=== PATIENT | male | born 1950 | race Hispanic/Latino ===

== ENCOUNTER 2021-10-21 15:53 | Observation (INO) | payer SELFPAY ==
[2021-10-21 16:54] LABS: #Basophils 0.1 10x3/uL (0.0-0.2); #Eosinphils 0.3 10x3/uL (0.0-0.5); #Monocytes 0.6 10x3/uL (0.0-1.1); #Neutrophils 3.9 10x3/uL (1.5-8.4); %Basophils 0.7 % (0.0-2.0); %Eosinophils 3.5 % (0.0-6.0); %Lymphocytes 33.7 % (18.0-47.0); %Monocytes 7.6 % (0.0-10.0); %Neutrophils 54.2 % (40.0-75.0); Hemoglobin 13.2 g/dL (13.5-17.5); Mean Corpuscular HGB CONC 33.7 g/dL (32.0-36.0); Mean Corpuscular Hemoglobin 30.6 pg (27.0-33.0); Mean Platelet Volume 10.3 fl (7.4-10.4); Platelet Count 227 10x3/uL (150-450); Red Blood Cell (RBC) Count 4.31 10x6/uL (4.32-5.72); White Blood Cell (WBC) Count 7.2 10x3/uL (3.5-10.5)
[2021-10-21 17:08] LABS: ALT (SGPT) 24 U/L (8-55); AST (SGOT) 25 U/L (5-34); Albumin 4.1 g/dL (3.4-4.8); Alkaline Phosphatase 57 U/L (40-110); Anion Gap 13 mmol/L (10-20); BUN (Urea Nitrogen) 17 mg/dL (8.4-25.7); Bilirubin, Total 0.2 mg/dL (0.2-1.2); Calc. Creatinine Clearance 0 mL/min (70-130); Calcium 9.2 mg/dL (7.8-10.44); Carbon Dioxide 24 mmol/L (23-31); Chloride 105 mmol/L (98-107); Globulin 3.3 g/dL (2.4-3.5); Glucose 94 mg/dL (80-115); Potassium 4.1 mmol/L (3.5-5.1); Protein, Total 7.4 g/dL (5.8-8.1); Sodium 138 mmol/L (136-145)
[2021-10-21] MEDS ORDERED: Aspirin Chewable 81 MG TAB ONE (17:43)
[2021-10-21] MEDS ORDERED: Zolpidem Tartrate 5 MG TAB PO PRN (20:04)
[2021-10-21] MEDS ORDERED: Acetaminophen 325 MG TAB PO PRN (20:04)
[2021-10-21] MEDS ORDERED: Ondansetron PF 4 MG/2 ML Vial IVP PRN (20:04)
[2021-10-21] MEDS ORDERED: Guaifenesin DM 100-10/5 ML UDCUP PO PRN (20:04)
[2021-10-21] MEDS ORDERED: Senokot S 8.6-50 MG TAB PO PRN (20:04)
[2021-10-21] MEDS ORDERED: Calcium Carbonate 500 MG ChewTAB PO PRN (20:04)
[2021-10-21 22:09] VITALS: BMI 33.4
[2021-10-21] MEDS ORDERED: Sodium Chloride 0.9% 500 ML IV SCH (23:30)
[2021-10-21] MEDS ORDERED: Lisinopril 5 MG TAB PO SCH (23:30)
[2021-10-22 04:34] LABS: Anion Gap 11 mmol/L (10-20); BUN (Urea Nitrogen) 15 mg/dL (8.4-25.7); Calc. Creatinine Clearance 104 mL/min (70-130); Calcium 8.6 mg/dL (7.8-10.44); Carbon Dioxide 25 mmol/L (23-31); Cardiac Risk 4.5 (Less than 4.5); Chloride 108 mmol/L (98-107); Cholesterol 153 mg/dl (< 200 Desired); Glucose 98 mg/dL (80-115); HDL Cholesterol 34 mg/dL (>60 Neg Risk); LDL Cholesterol, Calculated 95 mg/dL; Potassium 4.1 mmol/L (3.5-5.1); Sodium 140 mmol/L (136-145); Triglycerides 118 mg/dL (Less than 150)
[2021-10-22 04:54] LABS: SARS-CoV-2 NAA Rapid Test Not Detected (NotDetected)
[2021-10-22] MEDS ORDERED: Amlodipine 5 MG TAB PO SCH (06:48)
[2021-10-22] MEDS ORDERED: Lisinopril 5 MG TAB PO SCH (09:00)
[2021-10-22] MEDS: Aspirin 81 mg Enteric Coated Tablet PO SCH (10:05)
[2021-10-22] MEDS: Lisinopril 10 MG TAB PO SCH (20:05)
[2021-10-22] MEDS ORDERED: Atorvastatin Calcium 40 MG TAB PO SCH (21:00)
[2021-10-23 05:40] LABS: #Basophils 0.1 10x3/uL (0.0-0.2); #Eosinphils 0.2 10x3/uL (0.0-0.5); #Monocytes 0.4 10x3/uL (0.0-1.1); #Neutrophils 3.7 10x3/uL (1.5-8.4); %Basophils 0.8 % (0.0-2.0); %Eosinophils 3.5 % (0.0-6.0); %Lymphocytes 27.6 % (18.0-47.0); %Monocytes 6.2 % (0.0-10.0); %Neutrophils 61.7 % (40.0-75.0); Hemoglobin 13.3 g/dL (13.5-17.5); Mean Corpuscular HGB CONC 33.4 g/dL (32.0-36.0); Mean Corpuscular Hemoglobin 30.9 pg (27.0-33.0); Mean Corpuscular Volume 92.3 fl (81.2-95.1); Mean Platelet Volume 10.6 fl (7.4-10.4); Platelet Count 219 10x3/uL (150-450); RBC Distribution Width 12.2 % (11.5-14.5); Red Blood Cell (RBC) Count 4.31 10x6/uL (4.32-5.72)
[2021-10-23 05:50] LABS: Anion Gap 9 mmol/L (10-20); BUN (Urea Nitrogen) 16 mg/dL (8.4-25.7); Calc. Creatinine Clearance 102 mL/min (70-130); Calcium 8.9 mg/dL (7.8-10.44); Carbon Dioxide 28 mmol/L (23-31); Chloride 107 mmol/L (98-107); Glucose 104 mg/dL (80-115); Magnesium 2.1 mg/dL (1.6-2.6); Phosphorus 3.4 mg/dL (2.3-4.7); Potassium 4.3 mmol/L (3.5-5.1); Sodium 140 mmol/L (136-145)
[2021-10-23 08:23] VITALS: TEMP 97.8
[2021-10-23] MEDS: Lisinopril 10 MG TAB PO SCH (08:44)
[2021-10-23] MEDS: Aspirin 81 mg Enteric Coated Tablet PO SCH (08:44)
[2021-10-23 08:45] VITALS: BP 140/70
[2021-10-23] MEDS ORDERED: FLU VACC QS2021-22(65YR UP)/PF 240 MCG/0.7 ML SYRINGE IM ONE (09:00)
[2021-10-23] MEDS ORDERED: Amlodipine 5 MG TAB PO SCH (09:00)
[2021-10-23] MEDS ORDERED: Enoxaparin Sodium 40 MG/0.4 ML SYRINGE SC SCH (09:00)
[2021-10-23 12:24] LABS: Hemoglobin A1c 5.6 % (4.0-6.0)
== END 2021-10-23 10:00 | disposition home or self-care (01) ==
LOC: CSHERS 15:53 → CSHTELE 20:54
PROVIDERS: ADMIT Student in an Organized Health Care Education/Training Program; ATTEND Family Medicine
DX: H53.8 Other visual disturbances (principal); H40.9 Unspecified glaucoma; H33.22 Serous retinal detachment, left eye; Z87.891 Personal history of nicotine dependence; E66.9 Obesity, unspecified; Z20.822 Contact with and (suspected) exposure to COVID-19
CPT/HCPCS: 36415; 70450; 70553; 71046; 80048; 80053; 80061; 83036; 83735; 84100; 84443; 85025; 85652; 86140; 93005; 93010; 93306; 93880; G0378; J7030; U0002